=== PATIENT | male | born 1970 | race Caucasian/White ===

== ENCOUNTER 2017-04-08 17:39 | Emergency (ER) | payer OTHER ==
[~2017-04-08] VITALS: Ht 160 cm; Wt 72.6 kg
[~2017-04-08 17:39] MED LIST: ACET325; ALBU90OI6 INH; AMOX500 PO; AZIT250 PO; CETI10 PO; CIME400 PO; CODGUAEL PO; CRUTCH3 USE; CYCL10 PO; DIPH25; DIPH50 PO; DIVA125EC; HYDACE5 PO; IBUP200; IBUP400 PO; IBUP600 PO; IBUP800 PO; INSLE100IA; LORA10ER PO; NAPR500 PO; NAPR550 PO; OMEP10ER PO; OMEP20ER PO; OXYACE5T PO; PENVK500 PO; PRED20 PO; PROACE100 PO; PROM25 PO; Percocet 5-3251 EACH PO; RANI150; RANI150 PO; RXANTBENOT RIGHTEAR; RXCODGUASY PO; RXCYCL10 PO; RXHYDACE PO; RXNAPNA550 PO; RXNEOPOLHC AD; RXOXYACE PO; RXPROACE PO; RXTRAM50 PO; SERT50; TERB24TC TOP; TOBDEXOPSU OU; TRAACE PO; TRAM50 PO; TRAZ100 PO; VENL75; [UNRECOGNIZED DRUG - REMARK]; [UNRECOGNIZED DRUG - REMARK]; [UNRECOGNIZED DRUG - REMARK]
[2017-04-08 19:05] LABS: BASOPHILS ABSOLUTE AUTO 0.04 K/mm3 (0.00-0.23); BASOPHILS PERCENT AUTO 0 % (0-2); EOSINOPHILS ABSOLUTE AUTO 0.21 K/mm3 (0.00-0.68); EOSINOPHILS PERCENT AUTO 1 % (0-6); Hematocrit 38.9 % (37.0-53.0); Hemoglobin 12.9 g/dL (13.5-17.5); IMMATURE GRAN ABSOLUTE AUTO 0.13 K/mm3 (0.00-0.10); IMMATURE GRAN PERCENT AUTO 1 % (0-1); LYMPHOCYTES ABSOLUTE AUTO 2.12 K/mm3 (0.84-5.20); LYMPHOCYTES PERCENT AUTO 14 % (21-46); MONOCYTES ABSOLUTE AUTO 0.82 K/mm3 (0.16-1.47); MONOCYTES PERCENT AUTO 5 % (4-13); Mean Corpuscular HGB 26.9 pg (26.0-34.0); Mean Corpuscular HGB Conc 33.2 g/dL (31.5-36.5); Mean Corpuscular Volume 81 fL (80-100); NEUTROPHILS ABSOLUTE AUTO 11.77 K/mm3 (1.96-9.15); NEUTROPHILS PERCENT AUTO 78 % (41-73); Platelet Count 232 K/mm3 (150-400); RDW Coefficient Variation 15.1 % (11.7-14.2); RDW Standard Deviation 44.5 fL (35.1-46.3); Red Blood Cell Count 4.79 M/mm3 (4.30-5.90); White Blood Cell Count 15.09 K/mm3 (4.00-11.30)
[2017-04-08 19:25] LABS: Alanine Aminotransfer (ALT/SGP 17 U/L (12-78); Albumin, Blood 3.3 g/dL (3.4-5.0); Albumin/Globulin Ratio 0.8 (0.8-1.8); Alk Phos 82 U/L (50-136); Anion Gap 6 mmol/L (6-16); Aspartate Aminotrans (AST/SGOT 14 U/L (12-37); Bilirubin, Total 0.6 mg/dL (0.1-1.0); Blood Urea Nitrogen 16 mg/dL (8-24); Bun/Creatinine Ratio 17.1 (12.0-20.0); CO2, Blood 27 mmol/L (21-32); Calcium, Blood 8.8 mg/dL (8.5-10.1); Chloride, Blood 108 mmol/L (98-108); Creatinine, Blood 0.94 mg/dL (0.60-1.20); Globulin, Blood 4.3 g/dL (2.2-4.0); Glomerular Filtration Rate >60 (60-); Glucose, Blood 102 mg/dL (70-99); Potassium, Blood 4.6 mmol/L (3.5-5.5); Sodium, Blood 141 mmol/L (136-145); Total Protein, Blood 7.6 g/dL (6.4-8.2)
[2017-04-16] MEDS ORDERED: Percocet 5-3251 EACH PO (15:06)
[2017-10-01] MEDS ORDERED: LEVFLO500 PO (09:47)
[2017-10-16] MEDS ORDERED: Ventolin/Prove6.7 GM INH (20:48)
[2017-10-16] MEDS ORDERED: IBUP400 PO (20:48)
== END 2017-04-08 21:10 | disposition left against medical advice (07) ==
LOC: ER 17:39
PROVIDERS: Physician Assistant
DX: K80.20 Calculus of gallbladder without cholecystitis without obstruction (principal); Z88.5 Allergy status to narcotic agent; Z90.49 Acquired absence of other specified parts of digestive tract
CPT/HCPCS: 36415; 74176; 80053; 81000; 83690; 85025; 99284

== ENCOUNTER 2017-04-10 13:38 | Emergency (ER) | payer OTHER ==
[~2017-04-10] VITALS: Ht 160 cm; Wt 72.6 kg
[2017-04-10 14:26] LABS: BASOPHILS ABSOLUTE AUTO 0.07 K/mm3 (0.00-0.23); BASOPHILS PERCENT AUTO 1 % (0-2); EOSINOPHILS PERCENT AUTO 2 % (0-6); Hematocrit 40.8 % (37.0-53.0); Hemoglobin 13.5 g/dL (13.5-17.5); IMMATURE GRAN ABSOLUTE AUTO 0.12 K/mm3 (0.00-0.10); IMMATURE GRAN PERCENT AUTO 1 % (0-1); LYMPHOCYTES ABSOLUTE AUTO 1.78 K/mm3 (0.84-5.20); LYMPHOCYTES PERCENT AUTO 14 % (21-46); MONOCYTES ABSOLUTE AUTO 0.92 K/mm3 (0.16-1.47); MONOCYTES PERCENT AUTO 7 % (4-13); Mean Corpuscular HGB 26.1 pg (26.0-34.0); Mean Corpuscular HGB Conc 33.1 g/dL (31.5-36.5); Mean Corpuscular Volume 79 fL (80-100); Mean Platelet Volume 9.1 fL (9.1-12.4); NEUTROPHILS ABSOLUTE AUTO 9.72 K/mm3 (1.96-9.15); NEUTROPHILS PERCENT AUTO 75 % (41-73); Platelet Count 232 K/mm3 (150-400); RDW Coefficient Variation 14.6 % (11.7-14.2); RDW Standard Deviation 41.3 fL (35.1-46.3); Red Blood Cell Count 5.17 M/mm3 (4.30-5.90); White Blood Cell Count 12.91 K/mm3 (4.00-11.30)
[2017-04-10 14:30] LABS: Alanine Aminotransfer (ALT/SGP 14 U/L (12-78); Albumin, Blood 3.5 g/dL (3.4-5.0); Albumin/Globulin Ratio 0.8 (0.8-1.8); Alk Phos 81 U/L (50-136); Anion Gap 6 mmol/L (6-16); Aspartate Aminotrans (AST/SGOT 9 U/L (12-37); Bilirubin, Total 0.7 mg/dL (0.1-1.0); Blood Urea Nitrogen 17 mg/dL (8-24); Bun/Creatinine Ratio 14.3 (12.0-20.0); CO2, Blood 26 mmol/L (21-32); Calcium, Blood 8.5 mg/dL (8.5-10.1); Chloride, Blood 109 mmol/L (98-108); Creatinine, Blood 1.19 mg/dL (0.60-1.20); Globulin, Blood 4.2 g/dL (2.2-4.0); Glomerular Filtration Rate >60 (60-); Glucose, Blood 105 mg/dL (70-99); Potassium, Blood 4.1 mmol/L (3.5-5.5); Sodium, Blood 141 mmol/L (136-145); Total Protein, Blood 7.7 g/dL (6.4-8.2)
[2017-04-10] MEDS ORDERED: Ultram50 MG PO (17:30)
[2017-04-10] MEDS ORDERED: Zofran Odt4 MG SL (17:30)
[2017-04-16] MEDS ORDERED: Percocet 5-3251 EACH PO (15:06)
[2017-10-01] MEDS ORDERED: LEVFLO500 PO (09:47)
[2017-10-16] MEDS ORDERED: Ventolin/Prove6.7 GM INH (20:48)
[2017-10-16] MEDS ORDERED: IBUP400 PO (20:48)
== END 2017-04-10 17:48 | disposition home or self-care (01) ==
LOC: ER 13:38
PROVIDERS: Emergency Medicine
DX: K80.20 Calculus of gallbladder without cholecystitis without obstruction (principal); Z88.5 Allergy status to narcotic agent
CPT/HCPCS: 36415; 76705; 80053; 83690; 85025; 96361; 96374; 99284; J1885; J7030

== ENCOUNTER 2017-04-22 05:47 | Day surgery (SDC) | payer OTHER ==
[~2017-04-22] VITALS: Ht 160 cm; Wt 70.3 kg
[~2017-04-22 05:47] MED LIST changes: +Ultram50 MG PO; +Zofran Odt4 MG SL
[2017-10-01] MEDS ORDERED: LEVFLO500 PO (09:47)
[2017-10-16] MEDS ORDERED: Ventolin/Prove6.7 GM INH (20:48)
[2017-10-16] MEDS ORDERED: IBUP400 PO (20:48)
== END 2017-04-22 10:15 | disposition home or self-care (01) ==
LOC: ORSCMMR 05:47 → ORD 07:30 → ORSCMMR 10:15
PROVIDERS: Surgery
PROC: BF031ZZ Plain Radiography of Gallbladder and Bile Ducts using Low Osmolar Contrast (ICD-10-PCS; principal; 2017-04-22 07:30)
PROC: 0FT44ZZ Resection of Gallbladder, Percutaneous Endoscopic Approach (ICD-10-PCS; principal; 2017-04-22 07:30)
DX: K80.11 Calculus of gallbladder with chronic cholecystitis with obstruction (principal)
CPT/HCPCS: 74300; 88304; C1729; J0690; J1100; J1885; J2250; J2405; J2710; J3010; J7120

== ENCOUNTER 2017-04-22 23:10 | Emergency (ER) | payer OTHER ==
[~2017-04-22] VITALS: Ht 160 cm; Wt 70.3 kg
[2017-10-01] MEDS ORDERED: LEVFLO500 PO (09:47)
[2017-10-16] MEDS ORDERED: Ventolin/Prove6.7 GM INH (20:48)
[2017-10-16] MEDS ORDERED: IBUP400 PO (20:48)
== END 2017-04-23 01:08 | disposition home or self-care (01) ==
LOC: ER 23:10
DX: G89.18 Other acute postprocedural pain (principal); R10.11 Right upper quadrant pain; Z90.49 Acquired absence of other specified parts of digestive tract; Z88.5 Allergy status to narcotic agent
CPT/HCPCS: 96372; 99283; J1170

== ENCOUNTER 2017-09-12 02:56 | Emergency (ER) | payer OTHER ==
[~2017-09-12] VITALS: Ht 160 cm; Wt 72.6 kg
[2017-09-12 03:54] LABS: BASOPHILS ABSOLUTE AUTO 0.01 K/mm3 (0.00-0.23); BASOPHILS PERCENT AUTO 0 % (0-2); EOSINOPHILS ABSOLUTE AUTO 0.04 K/mm3 (0.00-0.68); EOSINOPHILS PERCENT AUTO 0 % (0-6); Hematocrit 34.1 % (37.0-53.0); Hemoglobin 11.6 g/dL (13.5-17.5); IMMATURE GRAN ABSOLUTE AUTO 0.08 K/mm3 (0.00-0.10); IMMATURE GRAN PERCENT AUTO 1 % (0-1); LYMPHOCYTES ABSOLUTE AUTO 1.34 K/mm3 (0.84-5.20); LYMPHOCYTES PERCENT AUTO 15 % (21-46); MONOCYTES ABSOLUTE AUTO 0.96 K/mm3 (0.16-1.47); MONOCYTES PERCENT AUTO 11 % (4-13); Mean Corpuscular HGB 26.1 pg (26.0-34.0); Mean Corpuscular Volume 77 fL (80-100); Mean Platelet Volume 10.1 fL (9.1-12.4); NEUTROPHILS ABSOLUTE AUTO 6.67 K/mm3 (1.96-9.15); NEUTROPHILS PERCENT AUTO 73 % (41-73); Platelet Count 127 K/mm3 (150-400); RDW Coefficient Variation 14.3 % (11.7-14.2); RDW Standard Deviation 40.1 fL (35.1-46.3); Red Blood Cell Count 4.44 M/mm3 (4.30-5.90)
[2017-09-12 04:15] LABS: Alanine Aminotransfer (ALT/SGP 37 U/L (12-78); Albumin, Blood 2.8 g/dL (3.4-5.0); Albumin/Globulin Ratio 0.7 (0.8-1.8); Alk Phos 86 U/L (50-136); Anion Gap 10 mmol/L (6-16); Aspartate Aminotrans (AST/SGOT 25 U/L (12-37); Bilirubin, Total 0.6 mg/dL (0.1-1.0); Blood Urea Nitrogen 18 mg/dL (8-24); Bun/Creatinine Ratio 18.7 (12.0-20.0); CO2, Blood 22 mmol/L (21-32); Calcium, Blood 7.6 mg/dL (8.5-10.1); Chloride, Blood 103 mmol/L (98-108); Creatinine, Blood 0.96 mg/dL (0.60-1.20); Ethanol (Alcohol), Blood, Med <3 mg/dL; Globulin, Blood 4.2 g/dL (2.2-4.0); Glomerular Filtration Rate >60 (60-); Glucose, Blood 108 mg/dL (70-99); Potassium, Blood 3.8 mmol/L (3.5-5.5); Sodium, Blood 135 mmol/L (136-145); Troponin I <0.015 ng/mL (0.000-0.040)
[2017-09-12] MEDS ORDERED: ALBU90OI INH (05:07)
[2017-09-12] MEDS ORDERED: IBUP400 PO (05:07)
[2017-09-12 05:27] LABS: U Amphetamine Screen DETECTED; U Barbituate Screen Not Detected; U Benzodiazapine Screen Not Detected; U Buprenorphine Screen Not Detected; U Cannabinoids Screen Not Detected; U Cocaine Screen Not Detected; U Methadone Screen Not Detected; U Methamphetamine Screen DETECTED; U Opiates Screen Not Detected; U Oxycodone Screen Not Detected; U Phencyclidine Screen Not Detected; U Propoxyphene Screen Not Detected
== END 2017-09-12 05:37 | disposition home or self-care (01) ==
LOC: ER 02:56
PROVIDERS: Emergency Medicine
DX: J45.909 Unspecified asthma, uncomplicated (principal); R07.9 Chest pain, unspecified; R50.9 Fever, unspecified; Z88.5 Allergy status to narcotic agent
CPT/HCPCS: 36415; 71046; 80053; 84484; 85025; 93005; 93010; 96360; 99283; G0480; J7120

== ENCOUNTER 2017-11-12 17:22 | Emergency (ER) | payer OTHER ==
[~2017-11-12] VITALS: Ht 160 cm; Wt 64.9 kg
[~2017-11-12 17:22] MED LIST changes: +ALBU90OI INH; +LEVFLO500 PO; +Ventolin/Prove6.7 GM INH
[2017-11-12] MEDS ORDERED: Amiodarone HCl400 MG (17:46)
[2017-11-12] MEDS ORDERED: ASPI81CH (17:46)
[2017-11-12] MEDS ORDERED: FURO40 (17:47)
[2017-11-12] MEDS ORDERED: GABA300T24 (17:47)
[2017-11-12] MEDS ORDERED: HEPARIN 5,5000 UNIT3 (17:47)
[2017-11-12] MEDS ORDERED: LIDO700A20 (17:48)
[2017-11-12] MEDS ORDERED: MAGOXI400 (17:48)
[2017-11-12] MEDS ORDERED: Acidophilus La100 GM (17:48)
[2017-11-12] MEDS ORDERED: POTCHL20ER (17:49)
[2017-11-12] MEDS ORDERED: ONDA4ODT (17:49)
[2017-11-12] MEDS ORDERED: METO25ER (17:49)
[2017-11-12] MEDS ORDERED: MELA3 (17:49)
[2017-11-12] MEDS ORDERED: VANC250 (17:50)
[2017-11-13] MEDS ORDERED: VANCOMYCIN 1000 MG IV (04:30)
[2017-11-13] MEDS ORDERED: OXYC5 PO (04:30)
== END 2017-11-12 18:49 | disposition left against medical advice (07) ==
LOC: ER 17:22
DX: I38 Endocarditis, valve unspecified (principal); B96.89 Other specified bacterial agents as the cause of diseases classified elsewhere; Z88.5 Allergy status to narcotic agent; Z79.899 Other long term (current) drug therapy; Z79.82 Long term (current) use of aspirin
CPT/HCPCS: 99283

== ENCOUNTER 2017-11-13 00:27 | Emergency (ER) | payer OTHER ==
[~2017-11-13 00:27] MED LIST changes: +ASPI81CH; +Acidophilus La100 GM; +Amiodarone HCl400 MG; +FURO40; +GABA300T24; +HEPARIN 5,5000 UNIT3; +LIDO700A20; +MAGOXI400; +MELA3; +METO25ER; +ONDA4ODT; +POTCHL20ER; +VANC250
[2017-11-13] MEDS ORDERED: OXYC5 PO (04:30)
[2017-11-13] MEDS ORDERED: VANCOMYCIN 1000 MG IV (04:30)
== END 2017-11-13 00:57 | disposition left against medical advice (07) ==
LOC: ER 00:27
DX: I33.0 Acute and subacute infective endocarditis (principal); A04.72 Enterocolitis due to Clostridium difficile, not specified as recurrent; Z88.5 Allergy status to narcotic agent; Z79.899 Other long term (current) drug therapy; Z79.82 Long term (current) use of aspirin

== ENCOUNTER 2018-03-10 14:21 | Emergency (ER) | payer OTHER ==
[~2018-03-10] VITALS: Ht 160 cm; Wt 71.7 kg
[~2018-03-10 14:21] MED LIST changes: +OXYC5 PO; +VANCOMYCIN 1000 MG IV
== END 2018-03-10 15:20 | disposition home or self-care (01) ==
LOC: ER 14:21
DX: I80.8 Phlebitis and thrombophlebitis of other sites (principal); Z88.5 Allergy status to narcotic agent; Z79.899 Other long term (current) drug therapy; Z79.82 Long term (current) use of aspirin
CPT/HCPCS: 93971; 99283-25

== ENCOUNTER 2018-09-19 13:10 | Emergency (ER) | payer OTHER ==
[~2018-09-19] VITALS: Ht 160 cm; Wt 72.6 kg
[2018-09-19] MEDS ORDERED: Voltaren100 GM TOP (14:33)
== END 2018-09-19 14:41 | disposition home or self-care (01) ==
LOC: ER 13:10
DX: M25.561 Pain in right knee (principal); Z88.5 Allergy status to narcotic agent
CPT/HCPCS: 29505; 73562-RT; 99283-25

== ENCOUNTER 2019-03-29 20:13 | Emergency (ER) | payer OTHER ==
[~2019-03-29] VITALS: Ht 160 cm; Wt 81.7 kg
[~2019-03-29 20:13] MED LIST changes: +Voltaren100 GM TOP
[2019-03-29] MEDS ORDERED: ELIQUIS5 MG PO (21:24)
[2019-03-29] MEDS ORDERED: METOPROLOL SUCC25 MG PO (21:52)
== END 2019-03-29 21:41 | disposition home or self-care (01) ==
LOC: ER 20:13
DX: I82.621 Acute embolism and thrombosis of deep veins of right upper extremity (principal); Z88.5 Allergy status to narcotic agent
CPT/HCPCS: 93971; 99283-25

== ENCOUNTER → 2019-04-02 | Outpatient (CLI) | payer OTHER ==
[~2019-04-02] MED LIST changes: +ELIQUIS5 MG PO; +METOPROLOL SUCC25 MG PO
== END | disposition home or self-care (01) ==
LOC: LAB SHORT 15:25 → LAB 15:25
DX: R10.2 Pelvic and perineal pain (principal)
CPT/HCPCS: 87086

== ENCOUNTER 2019-04-10 13:53 | Emergency (ER) | payer OTHER ==
[~2019-04-10] VITALS: Ht 160 cm; Wt 81.7 kg
== END 2019-04-10 15:54 | disposition home or self-care (01) ==
LOC: ER 13:53
DX: I82.621 Acute embolism and thrombosis of deep veins of right upper extremity (principal); Z86.718 Personal history of other venous thrombosis and embolism; Z88.5 Allergy status to narcotic agent; Z79.899 Other long term (current) drug therapy
CPT/HCPCS: 93971; 99283-25

== ENCOUNTER 2019-05-21 23:20 | Emergency (ER) | payer OTHER ==
[~2019-05-21] VITALS: Ht 160 cm; Wt 82.5 kg
== END 2019-05-22 03:43 | disposition home or self-care (01) ==
LOC: ER 23:20
DX: S30.0XXA Contusion of lower back and pelvis, initial encounter (principal); Z87.891 Personal history of nicotine dependence; W01.0XXA Fall on same level from slipping, tripping and stumbling without subsequent striking against object, initial encounter
CPT/HCPCS: 72220; 99283-25

== ENCOUNTER → 2019-09-09 | Outpatient (CLI) | payer OTHER | LOC: LAB SHORT 16:19 → LAB 16:19 | DX: L73.9 Follicular disorder, unspecified (principal) | CPT/HCPCS: 87070; 87205 ==

== ENCOUNTER 2019-09-19 23:14 | Emergency (ER) | payer OTHER ==
[~2019-09-19] VITALS: Ht 160 cm; Wt 84.4 kg
[2019-09-20] MEDS ORDERED: Oxybutynin Chlo10 MG PO (00:04)
[2019-09-20] MEDS ORDERED: XARELTO20 M1 PO (00:05)
[2019-09-20 00:13] LABS: BASOPHILS PERCENT AUTO 1 % (0-2); EOSINOPHILS ABSOLUTE AUTO 0.33 K/mm3 (0.00-0.68); EOSINOPHILS PERCENT AUTO 2 % (0-6); Hematocrit 46.8 % (37.0-53.0); Hemoglobin 15.4 g/dL (13.5-17.5); IMMATURE GRAN ABSOLUTE AUTO 0.19 K/mm3 (0.00-0.10); IMMATURE GRAN PERCENT AUTO 1 % (0-1); LYMPHOCYTES ABSOLUTE AUTO 4.04 K/mm3 (0.84-5.20); LYMPHOCYTES PERCENT AUTO 24 % (21-46); MONOCYTES ABSOLUTE AUTO 1.95 K/mm3 (0.16-1.47); MONOCYTES PERCENT AUTO 12 % (4-13); Mean Corpuscular HGB 27.9 pg (26.0-34.0); Mean Corpuscular HGB Conc 32.9 g/dL (31.5-36.5); Mean Corpuscular Volume 85 fL (80-100); Mean Platelet Volume 10.4 fL (9.1-12.4); NEUTROPHILS ABSOLUTE AUTO 10.26 K/mm3 (1.96-9.15); NEUTROPHILS PERCENT AUTO 61 % (41-73); Platelet Count 273 K/mm3 (150-400); RDW Coefficient Variation 13.5 % (11.7-14.2); Red Blood Cell Count 5.52 M/mm3 (4.30-5.90); White Blood Cell Count 16.87 K/mm3 (4.00-11.30)
[2019-09-20 00:33] LABS: Alanine Aminotransfer (ALT/SGP 23 U/L (12-78); Albumin, Blood 3.7 g/dL (3.4-5.0); Albumin/Globulin Ratio 0.9 (0.8-1.8); Alk Phos 70 U/L (50-136); Anion Gap 5 mmol/L (6-16); Aspartate Aminotrans (AST/SGOT 16 U/L (12-37); Bilirubin, Total 0.3 mg/dL (0.1-1.0); Blood Urea Nitrogen 12 mg/dL (8-24); Bun/Creatinine Ratio 14.6 (12.0-20.0); CO2, Blood 26 mmol/L (21-32); Calcium, Blood 9.3 mg/dL (8.5-10.1); Chloride, Blood 109 mmol/L (98-108); Creatinine, Blood 0.82 mg/dL (0.60-1.20); Glomerular Filtration Rate >60 (60-); Glucose, Blood 104 mg/dL (70-99); Potassium, Blood 4.3 mmol/L (3.5-5.5); Sodium, Blood 140 mmol/L (136-145); Total Protein, Blood 7.7 g/dL (6.4-8.2); Troponin I <0.015 ng/mL (0.000-0.040)
== END 2019-09-20 01:37 | disposition home or self-care (01) ==
LOC: ER 23:14
PROVIDERS: Emergency Medicine
DX: R07.9 Chest pain, unspecified (principal); Z88.5 Allergy status to narcotic agent; Z79.899 Other long term (current) drug therapy; Z86.73 Personal history of transient ischemic attack (TIA), and cerebral infarction without residual deficits; Z87.891 Personal history of nicotine dependence
CPT/HCPCS: 36415; 71045; 80053; 84484; 85025; 93005; 93010; 99285-25

== ENCOUNTER → 2019-12-01 | Outpatient (CLI) | payer OTHER ==
[~2019-12-01] MED LIST changes: +ATOR20 PO; +BENZ100A; +FLUTICASONE-SA1 EAC1 INH; +Oxybutynin Chlo10 MG PO; +Triamcinolone A15 G2 TOP; +XARELTO20 M1 PO; +ZYRTEC10 M2 PO
== END ==
LOC: PLD 14:23 → LAB SHORT 14:23
DX: R21 Rash and other nonspecific skin eruption (principal)
CPT/HCPCS: 88313

== ENCOUNTER 2019-12-23 05:44 | Day surgery (SDC) | payer OTHER ==
[~2019-12-23] VITALS: Ht 160 cm; Wt 84.0 kg
[~2019-12-23 05:44] MED LIST changes: -ATOR20 PO
[2019-12-23] MEDS ORDERED: ATOR20 PO (07:52)
[2019-12-23] MEDS ORDERED: OMEP20ER PO (07:53)
--- NOTE | 2019-12-23 09:30 | NUR ---
10CC AIR REMOVED FROM R WRIST TR BAND. -BLEEDING OR SWELLING.
--- NOTE | 2019-12-23 09:36 | NUR ---
UP TO BATHROOM /C SBA. TOLERATED WELL. -BLEEDING OR SWELLING R WRIST.
--- NOTE | 2019-12-23 11:15 | NUR ---
R WRIST TR BAND REMOVED. PUNCTURE AREA CLEANED /C NS AND CLOTH DOT DRSG PLACED. -BLEEDING OR SWELLING. R WRIST SPLINT REAPPLIED. PT AND VERBALIZED UNDERSTANDING OF WRITTEN AND VERBAL D/C INST. IV REMOVED. PT TAKEN OUT OF THE [facility]ENTER VIA W/C.
== END 2019-12-23 11:15 | disposition home or self-care (01) ==
LOC: MHTC 05:44
PROC: 4A023N7 Measurement of Cardiac Sampling and Pressure, Left Heart, Percutaneous Approach (ICD-10-PCS; principal; 2019-12-23)
PROC: B201YZZ Plain Radiography of Multiple Coronary Arteries using Other Contrast (ICD-10-PCS; principal; 2019-12-23)
DX: I25.10 Atherosclerotic heart disease of native coronary artery without angina pectoris (principal); I47.2 Ventricular tachycardia; Z95.2 Presence of prosthetic heart valve; I50.9 Heart failure, unspecified; Z79.01 Long term (current) use of anticoagulants; Z87.891 Personal history of nicotine dependence; Z98.890 Other specified postprocedural states; I82.409 Acute embolism and thrombosis of unspecified deep veins of unspecified lower extremity
CPT/HCPCS: 93458; 99152; 99153; C1769; C1894; J1644; J2250; J3010; J7030; J7050; Q9967

== ENCOUNTER 2020-03-06 20:51 | Emergency (ER) | payer OTHER ==
[~2020-03-06] VITALS: Ht 160 cm; Wt 86.2 kg
[~2020-03-06 20:51] MED LIST changes: +ATOR20 PO
[2020-03-06] MEDS ORDERED: Keflex500 MG PO (22:31)
[2020-03-06] MEDS ORDERED: Bactrim Ds Tab1 EACH PO (22:31)
== END 2020-03-06 22:52 | disposition home or self-care (01) ==
LOC: ER 20:51
DX: L03.113 Cellulitis of right upper limb (principal); Z79.01 Long term (current) use of anticoagulants; Z79.899 Other long term (current) drug therapy; Z88.6 Allergy status to analgesic agent; Z88.5 Allergy status to narcotic agent; Z86.73 Personal history of transient ischemic attack (TIA), and cerebral infarction without residual deficits; Z87.891 Personal history of nicotine dependence
CPT/HCPCS: 93971; 99283-25; A9270-GY

== ENCOUNTER 2020-03-18 22:26 | Emergency (ER) | payer OTHER ==
[~2020-03-18] VITALS: Ht 160 cm; Wt 87.5 kg
[~2020-03-18 22:26] MED LIST changes: +Bactrim Ds Tab1 EACH PO; +Keflex500 MG PO
[2020-03-18] MEDS ORDERED: IBU600 MG PO (23:07)
[2020-03-18] MEDS ORDERED: CYCL10 PO (23:07)
== END 2020-03-18 23:34 | disposition home or self-care (01) ==
LOC: ER 22:26
DX: S16.1XXA Strain of muscle, fascia and tendon at neck level, initial encounter (principal); Z79.01 Long term (current) use of anticoagulants; Z79.899 Other long term (current) drug therapy; Z87.891 Personal history of nicotine dependence; Z88.5 Allergy status to narcotic agent; Z86.73 Personal history of transient ischemic attack (TIA), and cerebral infarction without residual deficits
CPT/HCPCS: 96372; 99283-25; J1100; J1885

== ENCOUNTER 2020-06-10 21:47 | Emergency (ER) | payer OTHER ==
[~2020-06-10] VITALS: Ht 160 cm; Wt 86.2 kg
[~2020-06-10 21:47] MED LIST changes: +IBU600 MG PO
[2020-06-10 22:07] LABS: BASOPHILS ABSOLUTE AUTO 0.11 K/mm3 (0.00-0.23); BASOPHILS PERCENT AUTO 1 % (0-2); EOSINOPHILS ABSOLUTE AUTO 0.24 K/mm3 (0.00-0.68); EOSINOPHILS PERCENT AUTO 1 % (0-6); Hematocrit 46.6 % (37.0-53.0); Hemoglobin 15.8 g/dL (13.5-17.5); IMMATURE GRAN PERCENT AUTO 1 % (0-1); LYMPHOCYTES ABSOLUTE AUTO 3.32 K/mm3 (0.84-5.20); LYMPHOCYTES PERCENT AUTO 20 % (21-46); MONOCYTES ABSOLUTE AUTO 1.82 K/mm3 (0.16-1.47); MONOCYTES PERCENT AUTO 11 % (4-13); Mean Corpuscular HGB Conc 33.9 g/dL (31.5-36.5); Mean Corpuscular Volume 83 fL (80-100); Mean Platelet Volume 10.3 fL (9.1-12.4); NEUTROPHILS ABSOLUTE AUTO 11.32 K/mm3 (1.96-9.15); NEUTROPHILS PERCENT AUTO 67 % (41-73); Platelet Count 271 K/mm3 (150-400); RDW Coefficient Variation 13.2 % (11.7-14.2); RDW Standard Deviation 39.2 fL (35.1-46.3); Red Blood Cell Count 5.65 M/mm3 (4.30-5.90); White Blood Cell Count 16.91 K/mm3 (4.00-11.30)
[2020-06-10 22:34] LABS: Alanine Aminotransfer (ALT/SGP 32 U/L (12-78); Albumin, Blood 3.5 g/dL (3.4-5.0); Albumin/Globulin Ratio 0.9 (0.8-1.8); Alk Phos 90 U/L (50-136); Anion Gap 6 mmol/L (6-16); Aspartate Aminotrans (AST/SGOT 16 U/L (12-37); Bilirubin, Total 0.6 mg/dL (0.1-1.0); Blood Urea Nitrogen 12 mg/dL (8-24); Bun/Creatinine Ratio 14.9 (12.0-20.0); CO2, Blood 25 mmol/L (21-32); Calcium, Blood 8.8 mg/dL (8.5-10.1); Chloride, Blood 112 mmol/L (98-108); Globulin, Blood 3.8 g/dL (2.2-4.0); Glomerular Filtration Rate >60 (60-); Glucose, Blood 107 mg/dL (70-99); Sodium, Blood 143 mmol/L (136-145); Total Protein, Blood 7.3 g/dL (6.4-8.2); Troponin I <0.015 ng/mL (0.000-0.040)
[2020-06-10] MEDS ORDERED: ERYT250 PO (23:54)
[2020-06-10] MEDS ORDERED: AMLODIPINE BESYL5 MG PO (23:54)
[2020-06-21] MEDS ORDERED: Crutch1 EACH XX (13:30)
== END 2020-06-11 02:34 | disposition home or self-care (01) ==
LOC: ER 21:47
PROVIDERS: Physician Assistant
DX: R07.9 Chest pain, unspecified (principal); R06.00 Dyspnea, unspecified; Z79.01 Long term (current) use of anticoagulants; Z88.6 Allergy status to analgesic agent; Z88.5 Allergy status to narcotic agent; Z79.899 Other long term (current) drug therapy; Z87.891 Personal history of nicotine dependence
CPT/HCPCS: 36415; 71046; 71260; 80053; 83880; 84484; 85025; 93005; 93010; 99285-25; Q9967

== ENCOUNTER 2020-06-20 15:29 | Emergency (ER) | payer OTHER ==
[~2020-06-20] VITALS: Ht 160 cm; Wt 80.7 kg
[~2020-06-20 15:29] MED LIST changes: +AMLODIPINE BESYL5 MG PO; +ERYT250 PO
[2020-06-20] MEDS ORDERED: OXAYDO5 M1 PO (17:34)
[2020-06-20] MEDS ORDERED: Crutch1 EACH XX (17:44)
[2020-06-21] MEDS ORDERED: Crutch1 EACH XX (13:30)
== END 2020-06-20 18:53 | disposition home or self-care (01) ==
LOC: ER 15:29
DX: S82.402A Unspecified fracture of shaft of left fibula, initial encounter for closed fracture (principal); F17.290 Nicotine dependence, other tobacco product, uncomplicated; W18.41XA Slipping, tripping and stumbling without falling due to stepping on object, initial encounter
CPT/HCPCS: 29505; 73590; 96374; 99284-25; J3010

== ENCOUNTER 2020-11-03 14:16 | Emergency (ER) | payer OTHER ==
[~2020-11-03 14:16] MED LIST changes: +Crutch1 EACH XX; +OXAYDO5 M1 PO
== END 2020-11-03 14:26 | disposition left against medical advice (07) ==
LOC: ER 14:16
DX: Z53.21 Procedure and treatment not carried out due to patient leaving prior to being seen by health care provider (principal)

== ENCOUNTER → 2021-01-11 | Outpatient (CLI) | payer OTHER ==
[2021-01-11 18:38] LABS: Campylobacter Sp Not Detected (NOT DETECT); Cryptosporidium Not Detected (NOT DETECT); Cyclospora Cayetanensis Not Detected (NOT DETECT); E. Coli O157 Not Detected (NOT DETECT); Enteroaggregative E. coli-EAEC Not Detected (NOT DETECT); Enteropathogenic E. coli-EPEC Not Detected (NOT DETECT); Enterotoxigenic E. coli-ETEC Not Detected (NOT DETECT); Plesiomonas Shigelloides Not Detected (NOT DETECT); Salmonella Sp Not Detected (NOT DETECT); Shiga Toxin-prod E. coli-STEC Not Detected (NOT DETECT); Shigella/Enteroin E. coli-EIEC Not Detected (NOT DETECT); Vibrio Cholerae Not Detected (NOT DETECT); Vibrio Sp Not Detected (NOT DETECT); Yersinia Enterocolitica Not Detected (NOT DETECT)
[2021-01-11 18:39] LABS: Adenovirus F 40/41 Not Detected (NOT DETECT); Astrovirus Not Detected (NOT DETECT); Entamoeba Histolytica Not Detected (NOT DETECT); Giardia Lamblia Not Detected (NOT DETECT); Norovirus GI/GII Not Detected (NOT DETECT); Rotavirus A Not Detected (NOT DETECT); Sapovirus Not Detected (NOT DETECT)
== END | disposition home or self-care (01) ==
LOC: LAB FUT 01-09 12:55 → LAB 10:30 → LAB SHORT 10:30
PROVIDERS: Nurse Practitioner
DX: K52.9 Noninfective gastroenteritis and colitis, unspecified (principal)
CPT/HCPCS: 0097U

== ENCOUNTER → 2021-01-16 | Outpatient (CLI) | payer OTHER | LOC: LAB 14:31 → LAB SHORT 14:31 → LAB FUT 01-02 13:10 | DX: K52.9 Noninfective gastroenteritis and colitis, unspecified (principal); Z88.5 Allergy status to narcotic agent; Z88.6 Allergy status to analgesic agent | CPT/HCPCS: 82656; 87177; 87209 ==

== ENCOUNTER 2021-09-26 14:36 | Emergency (ER) | payer OTHER ==
[~2021-09-26] VITALS: Ht 160 cm; Wt 95.2 kg
[2021-09-26 15:28] LABS: BASOPHILS PERCENT AUTO 1 % (0-2); EOSINOPHILS ABSOLUTE AUTO 0.35 K/mm3 (0.00-0.68); EOSINOPHILS PERCENT AUTO 2 % (0-6); Hematocrit 48.2 % (37.0-53.0); Hemoglobin 15.8 g/dL (13.5-17.5); IMMATURE GRAN ABSOLUTE AUTO 0.13 K/mm3 (0.00-0.10); IMMATURE GRAN PERCENT AUTO 1 % (0-1); LYMPHOCYTES ABSOLUTE AUTO 2.98 K/mm3 (0.84-5.20); LYMPHOCYTES PERCENT AUTO 18 % (21-46); MONOCYTES PERCENT AUTO 9 % (4-13); Mean Corpuscular HGB 27.2 pg (26.0-34.0); Mean Corpuscular HGB Conc 32.8 g/dL (31.5-36.5); Mean Corpuscular Volume 83 fL (80-100); Mean Platelet Volume 10.4 fL (9.1-12.4); NEUTROPHILS ABSOLUTE AUTO 11.44 K/mm3 (1.96-9.15); NEUTROPHILS PERCENT AUTO 69 % (41-73); Platelet Count 298 K/mm3 (150-400); RDW Coefficient Variation 14.5 % (11.7-14.2); RDW Standard Deviation 43.1 fL (35.1-46.3)
[2021-09-26 15:44] LABS: Albumin, Blood 3.7 g/dL (3.4-5.0); Albumin/Globulin Ratio 0.9 (0.8-1.8); Bilirubin, Total 0.7 mg/dL (0.1-1.0); Bun/Creatinine Ratio 15.4 (12.0-20.0); Calcium, Blood 9.4 mg/dL (8.5-10.1); Creatinine, Blood 0.78 mg/dL (0.60-1.20); Globulin, Blood 4.2 g/dL (2.2-4.0); Potassium, Blood 4.4 mmol/L (3.5-5.5); Total Protein, Blood 7.9 g/dL (6.4-8.2)
== END 2021-09-26 19:56 | disposition home or self-care (01) ==
LOC: ER 14:36
PROVIDERS: Student in an Organized Health Care Education/Training Program
DX: K92.1 Melena (principal); D68.9 Coagulation defect, unspecified; Z88.5 Allergy status to narcotic agent; Z88.8 Allergy status to other drugs, medicaments and biological substances; Z79.899 Other long term (current) drug therapy; Z87.891 Personal history of nicotine dependence; Z95.3 Presence of xenogenic heart valve
CPT/HCPCS: 36415; 80053; 83690; 85025; 86850; 86900; 86901

== ENCOUNTER 2021-10-28 22:56 | Emergency (ER) | payer OTHER ==
[~2021-10-28] VITALS: Ht 160 cm; Wt 95.2 kg
[2021-10-29] MEDS ORDERED: CYCL10 PO (02:37)
== END 2021-10-29 02:49 | disposition home or self-care (01) ==
LOC: ER 22:56
DX: M25.551 Pain in right hip (principal); X50.1XXA Overexertion from prolonged static or awkward postures, initial encounter; Z88.5 Allergy status to narcotic agent; Z88.8 Allergy status to other drugs, medicaments and biological substances; Z79.01 Long term (current) use of anticoagulants; Z79.899 Other long term (current) drug therapy; Z95.2 Presence of prosthetic heart valve; Z86.73 Personal history of transient ischemic attack (TIA), and cerebral infarction without residual deficits; Z87.891 Personal history of nicotine dependence
CPT/HCPCS: A9270

== ENCOUNTER → 2022-01-05 | Outpatient (CLI) | payer OTHER ==
[2022-01-05 15:56] LABS: BASOPHILS ABSOLUTE AUTO 0.12 K/mm3 (0.00-0.23); BASOPHILS PERCENT AUTO 1 % (0-2); EOSINOPHILS ABSOLUTE AUTO 0.36 K/mm3 (0.00-0.68); EOSINOPHILS PERCENT AUTO 2 % (0-6); Hematocrit 45.2 % (37.0-53.0); Hemoglobin 15.4 g/dL (13.5-17.5); IMMATURE GRAN ABSOLUTE AUTO 0.18 K/mm3 (0.00-0.10); IMMATURE GRAN PERCENT AUTO 1 % (0-1); LYMPHOCYTES ABSOLUTE AUTO 3.12 K/mm3 (0.84-5.20); LYMPHOCYTES PERCENT AUTO 19 % (21-46); MONOCYTES ABSOLUTE AUTO 1.58 K/mm3 (0.16-1.47); MONOCYTES PERCENT AUTO 10 % (4-13); Mean Corpuscular HGB 28.5 pg (26.0-34.0); Mean Corpuscular HGB Conc 34.1 g/dL (31.5-36.5); Mean Corpuscular Volume 84 fL (80-100); NEUTROPHILS ABSOLUTE AUTO 10.75 K/mm3 (1.96-9.15); NEUTROPHILS PERCENT AUTO 67 % (41-73); Platelet Count 272 K/mm3 (150-400); RDW Coefficient Variation 14.2 % (11.7-14.2); RDW Standard Deviation 42.6 fL (35.1-46.3); Red Blood Cell Count 5.41 M/mm3 (4.30-5.90); White Blood Cell Count 16.11 K/mm3 (4.00-11.30)
[2022-01-05 16:11] LABS: Albumin, Blood 3.8 g/dL (3.4-5.0); Albumin/Globulin Ratio 0.9 (0.8-1.8); Bilirubin, Total 0.6 mg/dL (0.1-1.0); Bun/Creatinine Ratio 17.9 (12.0-20.0); Calcium, Blood 8.6 mg/dL (8.5-10.1); Creatinine, Blood 0.84 mg/dL (0.60-1.20); Globulin, Blood 4.1 g/dL (2.2-4.0); Potassium, Blood 4.4 mmol/L (3.5-5.5); Total Protein, Blood 7.9 g/dL (6.4-8.2)
== END | disposition home or self-care (01) ==
LOC: LAB 15:51 → LAB SHORT 15:51
PROVIDERS: Physician Assistant
DX: R53.83 Other fatigue (principal)
CPT/HCPCS: 80053; 83880; 84484; 85025

== ENCOUNTER 2022-05-28 16:11 | Observation (INO) | payer OTHER ==
[~2022-05-28] VITALS: Ht 160 cm; Wt 98.0 kg
[2022-05-28 16:55] LABS: BASOPHILS PERCENT AUTO 1 % (0-2); EOSINOPHILS ABSOLUTE AUTO 0.24 K/mm3 (0.00-0.68); EOSINOPHILS PERCENT AUTO 1 % (0-6); Hematocrit 47.6 % (37.0-53.0); Hemoglobin 15.9 g/dL (13.5-17.5); IMMATURE GRAN ABSOLUTE AUTO 0.13 K/mm3 (0.00-0.10); IMMATURE GRAN PERCENT AUTO 1 % (0-1); LYMPHOCYTES ABSOLUTE AUTO 3.27 K/mm3 (0.84-5.20); LYMPHOCYTES PERCENT AUTO 20 % (21-46); MONOCYTES ABSOLUTE AUTO 1.69 K/mm3 (0.16-1.47); MONOCYTES PERCENT AUTO 10 % (4-13); Mean Corpuscular HGB Conc 33.4 g/dL (31.5-36.5); Mean Corpuscular Volume 81 fL (80-100); NEUTROPHILS ABSOLUTE AUTO 11.29 K/mm3 (1.96-9.15); NEUTROPHILS PERCENT AUTO 68 % (41-73); Platelet Count 285 K/mm3 (150-400); RDW Coefficient Variation 14.5 % (11.7-14.2); RDW Standard Deviation 41.8 fL (35.1-46.3); Red Blood Cell Count 5.88 M/mm3 (4.30-5.90); White Blood Cell Count 16.72 K/mm3 (4.00-11.30)
[2022-05-28 17:10] LABS: Magnesium, Blood 2.2 mg/dL (1.6-2.4)
[2022-05-28 17:12] LABS: Albumin, Blood 3.6 g/dL (3.4-5.0); Albumin/Globulin Ratio 0.9 (0.8-1.8); Bilirubin, Total 0.8 mg/dL (0.1-1.0); Bun/Creatinine Ratio 14.9 (12.0-20.0); Creatinine, Blood 0.87 mg/dL (0.60-1.20); Potassium, Blood 4.2 mmol/L (3.5-5.5); Total Protein, Blood 7.6 g/dL (6.4-8.2)
[2022-05-28 20:45] LABS: Thyroid Stimulating Hormone 2.62 uIU/mL (0.360-4.800)
== END 2022-05-28 23:59 | disposition home or self-care (01) ==
LOC: ER 16:11 → PCU 16:12 → EDBEDREQ 20:02 → PCU 23:59
PROVIDERS: Student in an Organized Health Care Education/Training Program; ADMIT Internal Medicine
DX: I48.91 Unspecified atrial fibrillation (principal); I10 Essential (primary) hypertension; D72.829 Elevated white blood cell count, unspecified; Z88.5 Allergy status to narcotic agent; Z88.1 Allergy status to other antibiotic agents; Z87.891 Personal history of nicotine dependence; Z95.9 Presence of cardiac and vascular implant and graft, unspecified
CPT/HCPCS: 36415; 71045; 80053; 83735; 84443; 85025; 93005; 93010; 96361; 96365; 96366; 96375; 99285-25; A9270; J0282; J7030; J7060

== ENCOUNTER → 2022-08-22 | Outpatient (CLI) | payer OTHER | END | disposition home or self-care (01) | LOC: LAB 10:52 → LAB SHORT 10:52 | DX: L28.1 Prurigo nodularis (principal) | CPT/HCPCS: 88305; 88312 ==

== ENCOUNTER 2022-12-25 03:02 | Emergency (ER) | payer OTHER ==
[~2022-12-25] VITALS: Ht 162.6 cm; Wt 90.7 kg
[2022-12-25 03:25] VITALS: BP 170/86
== END 2022-12-25 04:24 | disposition home or self-care (01) ==
LOC: ER 03:02
DX: R51.9 Headache, unspecified (principal); Z88.8 Allergy status to other drugs, medicaments and biological substances; Z88.5 Allergy status to narcotic agent; Z79.899 Other long term (current) drug therapy; Z87.891 Personal history of nicotine dependence
CPT/HCPCS: 99283

== ENCOUNTER → 2023-01-21 | Outpatient (CLI) | payer OTHER ==
[2023-01-22 18:24] LABS: Influenza A, PCR NEGATIVE (NEGATIVE); Influenza B, PCR NEGATIVE (NEGATIVE); Resp Syncytial Virus, PCR NEGATIVE (NEGATIVE); SARS-Cov-2 (COVID-19) PCR, MMC NEGATIVE (NEGATIVE)
== END | disposition home or self-care (01) ==
LOC: LAB SHORT 16:30
PROVIDERS: Family Medicine
DX: R05.9 Cough, unspecified (principal)
CPT/HCPCS: 0241U

== ENCOUNTER 2023-05-14 06:32 | Day surgery (SDC) | payer OTHER ==
[~2023-05-14] VITALS: Ht 160 cm; Wt 94.7 kg
[~2023-05-14 06:32] MED LIST changes: +AMLO10 PO; -AMLODIPINE BESYL5 MG PO; +ANORO ELLIPTA1 EAC1 INH; +ATOR40TA PO; +METO50ER PO; -METOPROLOL SUCC25 MG PO
[2023-05-14] MEDS ORDERED: Lactated Ringer's 1,000 ML IV ONE (07:00)
[2023-05-14 07:08] VITALS: BP 140/92
[2023-05-14] MEDS ORDERED: CeFAZolin Sodium 2,000 MG VIAL ONE (07:12)
[2023-05-14] MEDS ORDERED: NS 50 ML IV ONE (07:12)
== END 2023-05-14 08:05 | disposition home or self-care (01) ==
LOC: ORSCSDS 06:32
DX: G56.22 Lesion of ulnar nerve, left upper limb (principal); Z53.9 Procedure and treatment not carried out, unspecified reason
CPT/HCPCS: J0690

== ENCOUNTER 2023-07-17 07:20 | Day surgery (SDC) | payer OTHER ==
[~2023-07-17] VITALS: Ht 160 cm; Wt 94.0 kg
[~2023-07-17 07:20] MED LIST changes: +Lidocaine HCl 2% 10 ML SDA ONE; +METO50 PO; +XARELTO20 MG PO
[2023-07-17] MEDS ORDERED: propofoL 20 ML IV ONE (07:55)
[2023-07-17] MEDS ORDERED: Lactated Ringer's 1,000 ML IV ONE ×2 (08:17→08:20)
[2023-07-17] MEDS ORDERED: CeFAZolin Sodium 2,000 MG VIAL ONE (08:20)
[2023-07-17] MEDS ORDERED: NS 50 ML IV ONE (08:20)
[2023-07-17] MEDS ORDERED: Bupivacaine 0.5% HCl 5 MG/ML 30MLVIAL ONE (08:29)
[2023-07-17] MEDS ORDERED: FentaNYL Citrate 50 MCG/ML 2 ML Injection ONE (08:29)
[2023-07-17] MEDS ORDERED: Lidocaine 2%-Epineph 1:200000 20 ML SDV ONE (08:29)
[2023-07-17] MEDS ORDERED: Midazolam HCl 1MG / ML 2ML Vial ONE (08:29)
--- NOTE | 2023-07-17 09:21 | NUR ---
07/17/[address] COMPLETED AN AXILLARY BLOCK IN OR ON R SIDE. SITE CHECK COMPLETE. PT TOLERATED WELL. VSS.
[2023-07-17 09:43] VITALS: BP 122/79
== END 2023-07-17 10:11 | disposition home or self-care (01) ==
LOC: ORSCSDS 07:20
PROVIDERS: Orthopaedic Surgery
PROC: 01N40ZZ Release Ulnar Nerve, Open Approach (ICD-10-PCS; principal; 2023-07-17 08:45)
DX: G56.21 Lesion of ulnar nerve, right upper limb (principal); I10 Essential (primary) hypertension; I25.10 Atherosclerotic heart disease of native coronary artery without angina pectoris; E78.5 Hyperlipidemia, unspecified; Z87.891 Personal history of nicotine dependence; J44.9 Chronic obstructive pulmonary disease, unspecified; G47.33 Obstructive sleep apnea (adult) (pediatric); Z86.73 Personal history of transient ischemic attack (TIA), and cerebral infarction without residual deficits; Z86.718 Personal history of other venous thrombosis and embolism; Z79.01 Long term (current) use of anticoagulants; Z79.899 Other long term (current) drug therapy
CPT/HCPCS: J0690; J2001; J2250; J2704; J3010; J7120